=== PATIENT | male | born 2000 | race Hispanic/Latino ===

== ENCOUNTER 2022-08-22 19:17 | Emergency (ER) | payer BC, OTHER ==
[2022-08-22] MEDS ORDERED: NA CHLORIDE 0.9% 1,000 ML ONE (21:09)
[2022-08-22] MEDS ORDERED: KETOROLAC 30 MG/ML INJ ONE (21:09)
[2022-08-22] MEDS ORDERED: ONDANSETRON 4 MG/2 ML VIAL ONE (21:09)
--- NOTE | 2022-08-22 21:27 | RAD REPORT ---
EXAM DESCRIPTION: CT - Stone Protocol - 08/22/2022 9:02 pm CLINICAL HISTORY: Abdominal pain. Right flank pain COMPARISON: None. TECHNIQUE: Computed axial tomography of the abdomen pelvis was obtained without oral or IV contrast. Lack of IV and oral contrast limits evaluation of solid organs, appendix, bowel, and vessels. Pineda l reformatted images were obtained and reviewed. All CT scans are performed using dose optimization technique as appropriate and may include automated exposure control or mA/KV adjustment according to patient size. FINDINGS: A right renal calculus is not present. Mild right hydronephrosis. Portions of the right ur eter are dilated. 4 millimeter calculus distal right ureter. Left kidney unremarkable The liver, spleen, pancreas and adrenals appear grossly normal There is no evidence of diverticulitis. The appendix appears normal IMPRESSION: 4 millimeter calculus distal right ureter resulting in mild right hydronephrosis
[2022-08-22 21:43] LABS: Absolute Lymphocytes (CBC) 0.6 K/uL (0.7-4.9); Hematocrit 44.3 % (39.6-49.0); Lymphocytes % 8.7 % (15.3-44.8); MCV 85.8 fL (80-100); MPV 9.3 fL (7.6-11.3); RBC Red Blood Cell Count 5.16 M/uL (4.33-5.43)
[2022-08-22 22:09] LABS: Albumin 4.2 g/dL (3.4-5.0); Bilirubin Total 0.7 mg/dL (0.2-1.0); Potassium 3.7 mEq/L (3.5-5.1); Protein, Total 7.9 g/dL (6.4-8.2)
--- NOTE | 2022-08-22 23:15 | ER ---
Nurse's Notes [facility] Name: Ervin Melchor Age: 22 yrs Sex: Male : 2000 Arrival Date: 08/22/2022 Time: 19:17 Bed 10 Private MD: Diagnosis: Calculus of ureter-right Presentation: 08/22 19:38 Chief complaint: Patient states: "I'm having a bad pain on my right lower side of mb9 stomach since last night. The pain radiates down to the right testicle. I've been vomiting and having diarrhea as well". Coronavirus screen: At this time, the client does not indicate any symptoms associated with coronavirus-19. Ebola Screen: No symptoms or risks identified at this time. Initial Sepsis Screen: Does the patient meet any 2 criteria? No. Patient's initial sepsis screen is negative. Does the patient have a suspected source of infection? No. Patient's initial sepsis screen is negative. Risk Assessment: Do you want to hurt yourself or someone else? Patient reports no desire to harm self or others. Onset of symptoms was August 21, 2022. 19:38 Method Of Arrival: Ambulatory 9 19:38 Acuity: LUCY 3 mb9 Triage Assessment: 19:40 General: Appears uncomfortable, Behavior is anxious. Pain: Complains of pain in RLQ mb9 Pain radiates to right testicle Pain currently is 10 out of 10 on a pain scale. Quality of pain is described as aching, sharp, stabbing, throbbing, Pain began suddenly, Is continuous. GI: Abdomen is flat, non-distended, Bowel sounds present X 4 quads. Abd is soft Abdomen is tender to palpation in right upper quadrant and right lower quadrant Reports diarrhea, nausea, vomiting. Derm: Skin is pink, warm \\T\\ dry. Musculoskeletal: Range of motion: intact in all extremities. Historical: - Allergies: 19:40 PENICILLINS; mb9 - Home Meds: 19:40 None [Active]; mb9 - PMHx: 19:40 None; mb9 - PSHx: 19:40 None; mb9 - Immunization history:: Adult Immunizations up to date. - Social history:: Smoking status: Reported history of juuling and/or vaping. Screenin:33 [facility] ED Fall Risk Assessment (Adult) History of falling in the last 3 months, mb9 including since admission No falls in past 3 months (0 pts) Confusion or Disorientation No (0 pts) Intoxicated or Sedated No (0 pts) Impaired Gait No (0 pts) Mobility Assist Device Used No (0 pt) Altered Elimination No (0 pt) Score/Fall Risk Level 0 - 2 = Low Risk Oriented to surroundings, Maintained a safe environment, Educated pt \\T\\ family on fall prevention, incl call for assistance when getting out of bed. Abuse screen: Denies threats or abuse. Nutritional screening: No deficits noted. Tuberculosis screening: No symptoms or risk factors identified. Assessment: 19:41 Reassessment: see triage assessment. mb9 23:33 Reassessment: Patient and/or family updated on plan of care and expected duration. Pain mb9 level reassessed. Patient is alert, oriented x 3, equal unlabored respirations, skin warm/dry/pink. Patient states feeling better. Patient states symptoms have improved. Vital Signs: 19:38 BP 126 / 81; Pulse 67; Resp 18; Temp 98.4(O); Pulse Ox 100% ; Weight 77.11 kg; Height 5 mb9 ft. 9 in. ; Pain 10/10; 23:33 BP 122 / 76; Pulse 74; Resp 18; Pulse Ox 100% ; mb9 19:38 Body Mass Index 25.10 (77.11 kg, 175.26 cm) mb9 19:38 Pain Scale: Adult mb9 ED Course: 19:18 Patient arrived in ED. ag3 19:40 Triage completed. mb9 19:40 Arm band placed on. mb9 19:59 [facility]ijerina [facility]. cp 19:59 Talib Horne MD is Attending Physician. cp 19:59 Attending Physician role handed off by Talib Horne MD cp 19:59 Parmjit Mclean MD is Attending Physician. cp 20:43 Juanita Harmon, MARITO is Primary Nurse. eh3 21:04 CT Stone Protocol: right flank pain In Process Unspecified. EDMS 21:15 Inserted saline lock: 22 gauge in left antecubital area, using aseptic technique. eh3 21:33 Placed in gown. Bed in low position. Call light in reach. Side rails up X 1. Client mb9 placed on continuous cardiac and pulse oximetry monitoring. NIBP monitoring applied. 21:33 No provider procedures requiring assistance completed. mb9 23:14 Daniel Muller MD is Referral Physician. cp 23:34 IV discontinued, intact, bleeding controlled, No redness/swelling at site. Pressure mb9 dressing applied. Administered Medications: 21:15 Drug: TORadol - Ketorolac IVP 15 mg Route: IVP; Site: left antecubital; 3 23:20 Follow up: Response: No adverse reaction; Marked relief of symptoms kl 21:15 Drug: Ondansetron IVP 4 mg Route: IVP; Site: left antecubital; 3 23:21 Follow up: Response: No adverse reaction; Marked relief of symptoms kl 21:15 Drug: NS 0.9% IV 1000 ml Route: IV; Rate: 1 bolus; Site: left antecubital; 3 23:21 Follow up: Response: No adverse reaction; IV Status: Infusion continued; IV Intake: kl 1000ml 23:20 Drug: Flomax PO 0.4 mg Route: PO; kl 23:20 Drug: Rocephin IV 1 grams Route: IV; Rate: bolus; Site: right antecubital; kl 23:20 Drug: Hydrocodone-Acetaminophen PO (7.5 mg-325 mg) 1 tabs Route: PO; Medication: 19:41 VIS not applicable for this client. mb9 Intake: 23:21 IV: 1000ml; Total: 1000ml. kl Outcome: 23:15 Discharge ordered by . cp 23:40 Discharged to home ambulatory. mb9 23:40 Condition: stable 23:40 Discharge instructions given to patient, Instructed on discharge instructions, follow up and referral plans. Demonstrated understanding of instructions, follow-up care, medications, Prescriptions given X 3. 23:41 Patient left the ED. mb9 Signatures: Dispatcher [employer] EDMS Sherry Shah RN RN kl Page, Corey, PA PA cp Teresa Gardner Erin, RN RN [facility] Amarilys Gonzalez RN RN [email or web address] Corrections: (The following items were deleted from the chart) 19:40 19:40 Allergies: No Known Allergies; mb9 mb9
--- NOTE | 2022-08-22 23:16 | EDPHYS ---
Physician Documentation [facility] Name: Ervin Melchor Age: 22 yrs Sex: Male : 2000 Arrival Date: 08/22/2022 Time: 19:17 Bed 10 Private MD: ED Physician Parmjit Mclean Historical: - Allergies: 08/22 19:40 PENICILLINS; mb9 - Home Meds: 19:40 None [Active]; mb9 - PMHx: 19:40 None; mb9 - PSHx: 19:40 None; mb9 - Immunization history:: Adult Immunizations up to date. - Social history:: Smoking status: Reported history of juuling and/or vaping. Vital Signs: 19:38 BP 126 / 81; Pulse 67; Resp 18; Temp 98.4(O); Pulse Ox 100% ; Weight 77.11 kg; Height 5 mb9 ft. 9 in. ; Pain 10/10; 23:33 BP 122 / 76; Pulse 74; Resp 18; Pulse Ox 100% ; mb9 19:38 Body Mass Index 25.10 (77.11 kg, 175.26 cm) mb9 19:38 Pain Scale: Adult mb9 MDM: 20:05 Patient medically screened. cp / 20:18 Order name: Urinalysis W/Microscopic cp 05/ 20:38 Order name: CBC with Diff; Complete Time: 22:16 cp 05/03 23:20 Interpretation: Normal except: MORALES% 83.8; LYM% 8.7; LYMA 0.6. cp 05/ 20:38 Order name: CMP; Complete Time: 22:16 cp 05/ 23:21 Interpretation: Normal except: NA 133; GLUC 123; GFR 84; GLOB 3.7. cp 05/ 20:38 Order name: Lipase; Complete Time: 22:16 cp / 20:38 Order name: CT Stone Protocol: right flank pain; Complete Time: 21:34 cp 05/ 20:38 Order name: IV Saline Lock; Complete Time: 21:24 cp 05/03 20:38 Order name: Labs collected and sent; Complete Time: 21:24 cp 05/ 22:18 Order name: PO challenge; Complete Time: 23:20 cp Administered Medications: 21:15 Drug: TORadol - Ketorolac IVP 15 mg Route: IVP; Site: left antecubital; 3 23:20 Follow up: Response: No adverse reaction; Marked relief of symptoms kl 21:15 Drug: Ondansetron IVP 4 mg Route: IVP; Site: left antecubital; 3 23:21 Follow up: Response: No adverse reaction; Marked relief of symptoms kl 21:15 Drug: NS 0.9% IV 1000 ml Route: IV; Rate: 1 bolus; Site: left antecubital; 3 23:21 Follow up: Response: No adverse reaction; IV Status: Infusion continued; IV Intake: kl 1000ml 23:20 Drug: Flomax PO 0.4 mg Route: PO; kl 23:20 Drug: Rocephin IV 1 grams Route: IV; Rate: bolus; Site: right antecubital; 23:20 Drug: Hydrocodone-Acetaminophen PO (7.5 mg-325 mg) 1 tabs Route: PO; Disposition Summary: 08/22/22 23:15 Discharge Ordered Location: Home cp Problem: new cp Symptoms: have improved cp Condition: Stable cp Diagnosis - Calculus of ureter - right cp Followup: cp - With: Daniel Muller MD - When: 2 - 3 days - Reason: Recheck today's complaints Discharge Instructions: - Discharge Summary Sheet cp - Kidney Stones cp - Renal Colic cp Forms: - Medication Reconciliation Form cp - Thank You Letter cp - Antibiotic Education cp - Prescription Opioid Use cp - Work release form 9 Prescriptions: - Flomax 0.4 mg Oral capsule - take 1 capsule by ORAL route once As needed; 7 capsule; Refills: 0, Product cp Selection Permitted - Ultram 50 mg Oral Tablet - take 1 tablet by ORAL route every 6 hours As needed; 12 tablet; Refills: 0, cp Product Selection Permitted - Zofran 4 mg Oral Tablet - take 1 tablet by ORAL route every 12 hours As needed; 20 tablet; Refills: 0, cp Product Selection Permitted Signatures: Dispatcher [employer] Sherry Phelps RN RN Talib Morales PA PA cp Hall, Erin, RN RN 3 Amarilys Gonzalez RN RN mb9 Corrections: (The following items were deleted from the chart) 19:40 19:40 Allergies: No Known Allergies; 9 9
[2022-08-22] MEDS ORDERED: CEFTRIAXONE 1000 MG/VIAL ONE (23:22)
[2022-08-22] MEDS ORDERED: HYDROCODONE/APAP 7.5/325 MG TAB ONE (23:23)
[2022-08-22] MEDS ORDERED: TAMSULOSIN 0.4 MG SR CAP ONE (23:23)
[2022-08-23 00:58] VITALS: TEMP 98.4; O2SAT 100
[2022-08-23 01:04] VITALS: BP 122/76
== END 2022-08-22 23:41 | disposition home or self-care (01) ==
LOC: ER 19:17
DX: N20.1 Calculus of ureter (principal); Z88.0 Allergy status to penicillin
CPT/HCPCS: 85025; 36415; 83690; 80053; 76377; 74176; J2405; J7030; J0696